=== PATIENT | female | born 1960 | race Caucasian/White ===

== ENCOUNTER 2022-07-14 10:33 | Outpatient (CLI) | payer BC, SELFPAY ==
[2022-07-14 22:03] LABS: Chloride* 102 mmol/L (96-114)
[2022-07-14 22:04] LABS: Albumin* 4.8 g/dL (3.3-5.0); Potassium* 4.6 mmol/L (3.6-5.1); Sodium* 143 mmol/L (135-149)
[2022-07-14 22:06] LABS: Bilirubin Total* 0.3 mg/dL (0.1-1.5); Carbon Dioxide* 32 mmol/L (20-32); Cholesterol* 234 mg/dL (90-199); Creatinine* 0.8 mg/dL (0.5-1.5); Estimated Glomerular Filt Rate 83 ml/min; Total Protein* 7.4 g/dL (6.0-8.3)
[2022-07-14 22:07] LABS: Alanine Aminotransferase* 24 U/L (4-35); Alkaline Phosphatase* 92 U/L (40-150); Aspartate Amino Transferase* 26 U/L (12-35); Blood Urea Nitrogen* 14 mg/dL (7-30); Calcium* 9.8 mg/dL (8.4-10.6); Glucose* 91 mg/dL (60-115); HDL Cholesterol* 99 mg/dL (>=50); LDL Cholesterol Calculated 117 mg/dL (<100); Triglycerides* 89 mg/dL (40-149)
[2022-07-14 22:34] LABS: TSH With Reflex to FT4* 0.929 uIU/mL (0.270-4.200)
== END 2022-07-14 10:34 | disposition home or self-care (01) ==
PROVIDERS: PCP Physician Assistant Medical; Visit Provider Physician Assistant Medical
DX: Z00.00 Encounter for general adult medical examination without abnormal findings (principal); R03.0 Elevated blood-pressure reading, without diagnosis of hypertension; Z13.6 Encounter for screening for cardiovascular disorders; Z13.29 Encounter for screening for other suspected endocrine disorder
CPT/HCPCS: 80053; 80061; 84443

== ENCOUNTER 2023-08-05 08:45 | Outpatient (CLI) | payer BC, SELFPAY | END 2023-08-05 08:46 | disposition home or self-care (01) | PROVIDERS: PCP Physician Assistant Medical; Visit Provider Physician Assistant Medical | DX: R53.83 Other fatigue (principal) | CPT/HCPCS: 80053; 82306; 84443; 85651; 86140; 86618 ==

== ENCOUNTER 2023-10-12 09:49 | Outpatient (CLI) | payer BC, SELFPAY | END 2023-10-12 09:50 | disposition home or self-care (01) | PROVIDERS: PCP Physician Assistant Medical; Visit Provider Physician Assistant Medical | DX: D64.9 Anemia, unspecified (principal) | CPT/HCPCS: 82607; 83540; 83550; 86618 ==

== ENCOUNTER 2023-11-17 08:55 | Outpatient (CLI) | payer BC, SELFPAY ==
--- NOTE | 2023-11-17 09:00 | CT_ITS ---
Final Report Patient: HERIBERTO ISAACS Facility:?[facility] Patient ID:[id number] Site Patient ID:?[id number] Site :?[id number] Study:?CT Sinus WITHOUT-11/17/2023 9:17:01 AM Ordering Physician:RIO Final Report: Indication: Chronic sinusitis Technique: Performed without IV contrast Comparison: None available Findings: Frontal sinuses: Clear. Ethmoid sinuses: Clear. Maxillary sinuses: Clear. The maxillary sinus drainage pathways are patent on both sides. Sphenoid sinuses: Clear, including both sphenoethmoidal recesses. Nasal Cavity: The nasal septum is primarily midline. No nasal polyps. No angela bullosa. No TMJ abnormalities identified. The visualized portions of the orbits, intracranial contents and upper soft tissue neck are grossly negative. Impression: 1. Clear sinuses. 2. Sinus drainage pathways are patent. Please note that all CT scans at this facility use dose modulation, iterative reconstruction, and/or weight-based dosing when appropriate to reduce radiation dose to as low as reasonably achievable. Dictated by Juan Fuchs MD @ 11/17/2023 12:46:01 PM (Electronic Signature)
== END 2023-11-17 08:56 | disposition home or self-care (01) ==
LOC: CT 08:56
PROVIDERS: PCP Physician Assistant Medical; Visit Provider Otolaryngology
DX: J32.9 Chronic sinusitis, unspecified (principal)
CPT/HCPCS: 70486; 99202; 99204

== ENCOUNTER 2024-04-01 15:30 | Outpatient (CLI) | payer BC, SELFPAY | END 2024-04-01 15:31 | disposition home or self-care (01) | LOC: NFLDREF 04-05 04:17 | PROVIDERS: PCP Physician Assistant Medical; Visit Provider Internal Medicine Hematology & Oncology | DX: D72.819 Decreased white blood cell count, unspecified (principal) | CPT/HCPCS: 82607; 82728; 82746 ==

== ENCOUNTER 2024-04-05 11:30 | Outpatient (RCR) | payer BC, SELFPAY | END 2024-05-15 23:59 | disposition home or self-care (01) | LOC: CCIC 11:30 | PROVIDERS: PCP Physician Assistant Medical; Visit Provider Internal Medicine Hematology & Oncology | DX: D72.819 Decreased white blood cell count, unspecified (principal) | CPT/HCPCS: 36415; 86618; 99202; 99204; 99213; G0463 ==

== ENCOUNTER 2024-10-27 16:31 | Outpatient (CLI) | payer OTHER, SELFPAY ==
[2024-10-27 23:34] LABS: Chlamydia DNA Amplified* NOT DETECTED (No Detected); GC DNA Amplified* NOT DETECTED (No Detected)
[2024-10-29 09:52] LABS: HPV Source Cervical; HPV, High Risk by TMA Not Detected
== END 2024-10-27 16:32 | disposition home or self-care (01) ==
PROVIDERS: PCP Physician Assistant Medical; Visit Provider Physician Assistant Medical
DX: D64.9 Anemia, unspecified (principal); R03.0 Elevated blood-pressure reading, without diagnosis of hypertension; D72.819 Decreased white blood cell count, unspecified; Z11.3 Encounter for screening for infections with a predominantly sexual mode of transmission; Z11.59 Encounter for screening for other viral diseases
CPT/HCPCS: 80053; 80061; 84443; 86703; 86803; 87491; 87591; 87624; 87625; 88141; 88142

== ENCOUNTER 2024-11-07 13:48 | Outpatient (RCR) | payer OTHER, SELFPAY | END 2025-05-06 23:59 | disposition home or self-care (01) | LOC: CCIC 13:48 | PROVIDERS: PCP Physician Assistant Medical; Referring Provider Physician Assistant Medical; Visit Provider Internal Medicine Hematology & Oncology | DX: D72.819 Decreased white blood cell count, unspecified (principal) | CPT/HCPCS: 99213; G0463 ==